=== PATIENT | male | born 1990 | race Caucasian/White ===

== ENCOUNTER 2023-11-20 13:25 | Outpatient (AMB) | payer SELFPAY ==
--- NOTE | 2023-11-20 13:29 | MHC.OFFWIV ---
Intake Vital Signs 11/20/23 13:30 Height 5 ft 10 in Weight 214 lb BMI 30.7 BP 122/84 Blood Pressure Location Lt brachial Position Sitting Pulse 86 Pulse Source Pulse Oximeter Temp 98.5 F Temp Source Oral Pulse Oximetry (%) 98 Oxygen Delivery Method Room Air Intake Visit Reasons: [employer]- eyes are sensitive, feeling ill, vomiting Intake Note: Patient here for eye sensitivity for about 48hrs, vomiting, constipation. Patient Tobacco Use Status: Never used Tobacco Allergies No Known Allergies Allergy (Verified 11/20/23 13:34) Do you need a note to return to daycare/school/sports/work: No HPI HPI Comments History of Present Illness Details Patient is a 32-year-old transgender female complaining of dizziness, which is worse with movement, he states he has vomited a few times. Although he states he was able to keep some food down when he had macaroni and cheese at 02:00 this morning. He states he has chronic tinnitus that has no change in his hearing or vision. He states he had a headache but he took a bunch of Tylenol and that has gone away. He denies any diarrhea and in fact states he has some constipation but is able to pass flatus. He denies any fevers PFSH Social History Patient Tobacco Use Status: Never used Tobacco Review of Systems Const All systems reviewed & are unremarkable except as noted in HPI and below Physical Exam Vital Signs: Last Vital Signs Temp 98.5 F 11/20/23 13:30 Pulse 86 11/20/23 13:30 BP 122/84 11/20/23 13:30 Pulse Ox 98 11/20/23 13:30 Oxygen Delivery Method Room Air 11/20/23 13:30 BMI result Body Mass Index 30.7 Const General: cooperative, healthy appearing, comfortable and no acute distress Orientation/consciousness: patient oriented x3 HEENT Head: Yes normal to inspection, Yes No palpable skull fracture present and Yes normocephalic Ears: hearing grossly normal bilaterally, external ears normal, EAC's normal, mastoids normal (no TTP) bilaterally and TM abnormal (Right side) wth effusion General nose exam: Normal external nose present Face and sinus: Yes normal facial exam Mouth: Normal oral and palatal mucosa present Teeth and gingiva: dentition normal Throat: Yes posterior oropharynx normal Eyes General: appearance normal, both eyes and all related structures Neck Neck: Yes normal visual inspection, Yes full ROM, Yes no lymphadenopathy, Yes no meningeal signs, Yes trachea midline and Yes supple Resp Effort & Inspection: normal respiratory effort and able to speak in complete sentences Skin General skin exam: no rashes or lesions noted Neuro General: patient oriented x3 and no meningeal signs Assessment & Plan Assessment & Plan (1) Otitis media: Code(s): H66.90 - Otitis media, unspecified, unspecified ear Qualifiers: Otitis media type: mucoid Chronicity: acute Laterality: right Qualified Code(s): H65.191 - Other acute nonsuppurative otitis media, right ear Plan: Vital signs are stable, physical exam remarkable for otitis media on the right side. We will give him some meclizine to help him manage the dizziness over the next 2 days as well as amoxicillin to treat the infection. Gave red flag warning signs and when to go to the emergency department. Recommended MiraLax for his constipation (2) Constipation: Code(s): K59.00 - Constipation, unspecified Qualifiers: Constipation type: unspecified constipation type Qualified Code(s): K59.00 - Constipation, unspecified Plan: Patient able to pass flatus as evidence in his physical exam. Gave red flag warning signs and when to go to the emergency department, recommended MiraLax. Plan See above Medications: New meclizine 25 mg PO BID PRN 5 tabs 0RF dizziness amoxicillin 875 mg PO Q12H 10 tabs 0RF Coding Level of Care Code New Pt Level 4 (15636) Diagnoses Acute mucoid otitis media of right ear H65.191 Otitis media type: mucoid Chronicity: acute Laterality: right Constipation, unspecified constipation type K59.00 Constipation type: unspecified constipation type
[2023-11-20 13:30] VITALS: BP 122/84; PULSE 86; TEMP 36.9; O2SAT 98; BMI 30.7
== END 2023-11-20 14:24 | disposition home or self-care (01) ==
PROVIDERS: Visit Provider Physician Assistant
DX: H65.191 Other acute nonsuppurative otitis media, right ear (principal); K59.00 Constipation, unspecified
CPT/HCPCS: 99204

== ENCOUNTER 2024-07-16 20:01 | Emergency (ER) | payer MEDICAID, SELFPAY ==
--- NOTE | 2024-07-16 20:05 | ED.GENADULT ---
HPI - General Adult General Chief complaint: General Medical Stated complaint: cold hands, high temperature Time Seen by Provider: 07/16/24 23:15 Source: patient Mode of arrival: ambulatory Limitations: no limitations History of Present Illness ED Provider: Dr. Nohemi Chávez HPI narrative: Patient comes to the emergency room complaining of cold hands . Patient states that he was working at [employer], noticed that his hands were cold. According to the patient, he was told by a co-worker that maybe he had a fever. Patient reporting feeling anxious and came to the emergency room. At this time, patient states that he no longer has any cold hands sensation numbness or tingling. Patient states that he feels back to baseline. Related Data Previous Rx's ?Medication ?Instructions ?Recorded amoxicillin 875 mg tablet 875 mg PO Q12H #10 tabs 11/20/23 meclizine 25 mg tablet 25 mg PO BID PRN dizziness #5 tabs 11/20/23 Allergies Allergy/AdvReac Type Severity Reaction Status Date / Time No Known Allergies Allergy Verified 07/16/24 20:10 Review of Systems Review of Systems: Constitutional : No Weight loss, No Fever, No Chills, No Night Sweats, No Fatigue, No Malaise ENT/Mouth : No Hearing loss, No Ear Pain, No Nasal Congestion, No Sinus Pain, No Hoarseness, No sore throat, No Rhinorrhea, No Swallowing Difficulty Eyes: No Eye Pain, No Swelling, No Redness, No Foreign Body, No Discharge, No Vision Changes Cardiovascular : No Chest Pain, No SOB, No Dyspnea on Exertion, No Orthopnea, No Edema, No Palpitations Respiratory : No Cough, No Sputum, No Wheezing, No Smoke Exposure, No Dyspnea Gastrointestinal : No Nausea, No Vomiting, No Diarrhea, No Constipation, No abdominal Pain, No Hematochezia, No Melena Genitourinary : no irregular bleeding, No Dysuria, No Urinary Frequency, No Hematuria, No Urinary Incontinence, No Urgency, No Flank Pain, No Urinary Flow Changes, No Hesitancy Musculoskeletal : No joint pain, No Myalgias, No Joint Swelling Skin : No Skin Lesions, No rash Neuro : No Weakness, No Numbness, No Paresthesias, No Loss of Consciousness, No Dizziness, No Headache Psych : Complaining of anxiety, No Depression, No SI/HI/AH/VH, No Social Issues, Heme/Lymph: No Bruising, No Bleeding,No Lymphadenopathy Endocrine : No Polyuria, No Polydipsia, No Temperature Intolerance [facility] Social History Social History Patient Tobacco Use Status: Never used Tobacco Physical Exam ED Vital Signs: Vital Signs - 24 hr 07/16/24 20:08 Temperature 97.6 F Pulse Rate 84 Respiratory Rate 18 Blood Pressure 126/76 Pulse Oximetry 98 Oxygen Delivery Method Room Air BMI result Body Mass Index 29.8 Const Other: Appearance: Alert. Oriented X3. No acute distress. Eyes: Pupils equal, round and reactive to light. ENT: Pharynx normal. Neck: Normal inspection. Neck supple. No lymph nodes noted. No crepitus CVS: Normal heart rate and rhythm. Pulses normal. Normal S1 and S2 Respiratory: No respiratory distress. Breath sounds normal. No Wheezing. No rales Abdomen: Soft and nontender. No rigidity. No distention. Skin: Skin warm and dry. Normal skin color. Normal skin turgor. Extremities: No lower extremity edema. No Lacerations. No Rash, strong bilateral radial pulses and normal capillary refill in all fingers Neuro: Oriented X 3. No motor deficit. No sensory deficit. Moving all extremities. No slurred speech. CN 2 through 12 grossly intact Psych: calm, cooperative, normal affect Course Course Course Narrative: This is a Rapid Medical Examination (RME) performed by Kurt Dunn PA-C in triage. Full HPI, ROS, assessment and treatment plan per primary provider in the Main ED. 07/16/242004 HEVER [place] Hx: 33 yo female assigned male at here for eval of cold hands, subjective fevers x2 hours. 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 reports numbness to b/l thumbs, felt warm. states she thought there was a circulation issue so she took an aspirin approx 1 hr ago. admits to marijuana use yesterday and prior to her shift today. PE/vitals: afebrile. Plan: screening labs Medical Decision Making Medical Decision Making MDM Narrative: No significant abnormality in patient's hematology or chemistry. Physical exam normal Patient asymptomatic Vitals normal Patient likely had anxiety. Lab Data 07/16/24 22:44 07/16/24 22:44 Labs: Lab Results 07/16/24 Range/Units 22:44 WBC 8.2 (4.8-10.8) X10*3/uL RBC 5.44 (4.60-5.80) X10*6/uL Hgb 16.0 (14.0-18.0) g/dl Hct 47.2 (42.0-52.0) % MCV 86.8 (80.0-98.0) fL MCH 29.4 (27.0-33.0) pg MCHC 33.9 (31.0-36.0) g/dl RDW 13.0 (11.0-16.0) % Plt Count 345 (160-400) X10*3/uL MPV 9.7 (9.4-12.4) fL Immature Gran % (Auto) 0.4 (0.0-0.4) % Neut % (Auto) 74.3 H (45-73) % Lymph % (Auto) 15.2 L (20-40) % [place] % (Auto) 8.3 (2-11) % Eos % (Auto) 0.9 (0-4) % Baso % (Auto) 0.9 (0-2) % Lymph # (Auto) 1.2 (1.2-4.9) X10*3/uL [place] # (Auto) 0.7 (0.1-1.2) X10*3/uL Eos # (Auto) 0.1 (0.0-0.4) X10*3/uL Baso # (Auto) 0.1 (0.0-0.2) X10*3/uL Abs Immat Gran (auto) 0.03 (0.00-0.03) X10*3/uL Absolute Neuts (auto) 6.1 (2.0-8.3) x10*3/uL Absolute Nucleated RBC 0.000 (0.0-0.012) X10*3/uL Nucleated RBC % (auto) 0.0 (0.0-0.2) /100WBC Sodium 138 (135-145) mmol/L Potassium 4.7 (3.3-5.1) mmol/L Chloride 106 (96-108) mmol/L Carbon Dioxide 23 (22-29) mmol/L Anion Gap 14 (12-20) BUN 12 (9-16) mg/dL Creatinine 0.80 (0.5-1.4) mg/dL Estim Creat Clear Calc 154.1 Estimated GFR > 60 Random Glucose 96 (60-115) mg/dL Calcium 9.6 (8.4-10.2) mg/dL Magnesium 2.3 (1.6-2.6) mg/dL Total Bilirubin 0.5 (0.0-1.0) mg/dL AST 29 (5-37) U/L ALT 22 (0-40) U/L Alkaline Phosphatase 67 (39-117) U/L Total Protein 7.8 (6.5-8.0) g/dL Albumin 4.5 (3.5-5.0) g/dL Discharge Plan Discharge Clinical Impression: Normal exam Patient Disposition: Home, Self-Care Additional Instructions: Please follow-up with your primary care physician tomorrow. If you have any worsening or new symptoms, please return to the emergency room or call 911 Prescriptions: No Action amoxicillin 875 mg tablet 875 mg PO Q12H Qty: 10 0RF meclizine 25 mg tablet 25 mg PO BID PRN (Reason: dizziness) Qty: 5 0RF Print Language: Hebrew
[2024-07-16 20:08] VITALS: BP 126/76; PULSE 84; RESP 18; TEMP 36.4; O2SAT 98; BMI 29.8
[2024-07-16 22:49] LABS: MANUAL DIFF FLAG NO
[2024-07-16 22:50] LABS: Basophils Absolute Auto 0.1 X10*3/uL (0.0-0.2); Basophils Percent Auto 0.9 % (0-2); Eosinophils Absolute Auto 0.1 X10*3/uL (0.0-0.4); Eosinophils Percent Auto 0.9 % (0-4); Hematocrit 47.2 % (42.0-52.0); Imm Gran Abs Auto 0.03 X10*3/uL (0.00-0.03); Imm Gran Pct Auto 0.4 % (0.0-0.4); Lymphocytes Absolute Auto 1.2 X10*3/uL (1.2-4.9); Lymphocytes Percent Auto 15.2 % (20-40); Mean Corpuscular HGB Conc 33.9 g/dl (31.0-36.0); Mean Corpuscular Hemoglobin 29.4 pg (27.0-33.0); Mean Corpuscular Volume 86.8 fL (80.0-98.0); Mean Platelet Volume 9.7 fL (9.4-12.4); Monocytes Absolute Auto 0.7 X10*3/uL (0.1-1.2); Monocytes Percent Auto 8.3 % (2-11); Neutrophils Absolute Auto 6.1 x10*3/uL (2.0-8.3); Neutrophils Percent Auto 74.3 % (45-73); Platelet Count 345 X10*3/uL (160-400); Red Blood Count 5.44 X10*6/uL (4.60-5.80); White Blood Count 8.2 X10*3/uL (4.8-10.8)
[2024-07-16 23:11] LABS: Alanine Aminotransferase 22 U/L (0-40); Albumin Level 4.5 g/dL (3.5-5.0); Alkaline Phosphatase 67 U/L (39-117); Anion Gap 14 (12-20); Aspartate Amino Transferase 29 U/L (5-37); Bilirubin Total 0.5 mg/dL (0.0-1.0); Blood Urea Nitrogen 12 mg/dL (9-16); Calcium 9.6 mg/dL (8.4-10.2); Carbon Dioxide 23 mmol/L (22-29); Chloride 106 mmol/L (96-108); Creatinine Clr Calc Pharmacy 154.1; Estimated Glomerular Filt Rate > 60; Glucose Random 96 mg/dL (60-115); Magnesium 2.3 mg/dL (1.6-2.6); Potassium 4.7 mmol/L (3.3-5.1); Sodium 138 mmol/L (135-145); Total Protein 7.8 g/dL (6.5-8.0)
[2024-07-17 00:03] VITALS: BP 131/81; PULSE 80; RESP 14; TEMP 37.3; O2SAT 98
[2024-07-17 00:04] VITALS: BP 131/81; PULSE 80; RESP 14; TEMP 37.3; O2SAT 98
== END 2024-07-17 00:05 | disposition home or self-care (01) ==
PROVIDERS: Physician Assistant Medical; Emergency Provider Emergency Medicine
DX: R50.9 Fever, unspecified (principal); Z79.899 Other long term (current) drug therapy
CPT/HCPCS: 36415; 80053; 83735; 85025; 99283; 99284